=== PATIENT | male | born 1950 | race Caucasian/White ===

== ENCOUNTER → 2023-07-26 | Outpatient (CLI) | payer MEDICARE | END | disposition home or self-care (01) | LOC: RESCLI 12:56 | PROVIDERS: ATTEND Family Medicine | DX: I10 Essential (primary) hypertension (principal); E78.5 Hyperlipidemia, unspecified; I48.91 Unspecified atrial fibrillation; Z85.828 Personal history of other malignant neoplasm of skin; Z98.890 Other specified postprocedural states; Z79.01 Long term (current) use of anticoagulants; Z88.8 Allergy status to other drugs, medicaments and biological substances; Z79.899 Other long term (current) drug therapy ==

== ENCOUNTER → 2023-09-13 | Outpatient (CLI) | payer MEDICARE ==
[~2023-09-13] MED LIST: AMLODIPINE-BEN1 EAC2 PO; COREG25 MG PO; FLECAINIDE ACE100 M1 PO; LASIX20 MG PO; LIPITOR40 MG PO; XARELTO20 M1 PO
== END | disposition home or self-care (01) ==
LOC: CARD 00:25
PROVIDERS: ATTEND Internal Medicine Cardiovascular Disease
DX: I48.91 Unspecified atrial fibrillation (principal); I10 Essential (primary) hypertension; R94.31 Abnormal electrocardiogram [ECG] [EKG]

== ENCOUNTER → 2024-07-19 | Outpatient (CLI) | payer MEDICARE | END | disposition home or self-care (01) | LOC: RESCLI 02:36 | PROVIDERS: ATTEND Student in an Organized Health Care Education/Training Program | DX: I10 Essential (primary) hypertension (principal); E78.5 Hyperlipidemia, unspecified; I48.91 Unspecified atrial fibrillation; Z85.828 Personal history of other malignant neoplasm of skin; Z98.890 Other specified postprocedural states; Z82.3 Family history of stroke; Z79.899 Other long term (current) drug therapy; Z88.8 Allergy status to other drugs, medicaments and biological substances ==

== ENCOUNTER 2024-09-05 17:18 | Emergency (ER) | payer MEDICARE ==
[~2024-09-05] VITALS: Ht 185.4 cm; Wt 113.4 kg
[2024-09-05] MEDS ORDERED: SILVER NITRATE APPLICATOR 1 EACH APP T ONE (17:55)
[2024-09-05] MEDS ORDERED: Gelatin Sponge 1 EACH SPON T ONE (18:00)
[2024-09-05] MEDS ORDERED: LIDOCAINE HCL/EPINEPHRINE 50 ML VIAL SC ONE (18:05)
[2024-09-05] MEDS ORDERED: TRANEXAMIC ACID 1,000 MG/10 ML VIAL T SCH (18:15)
== END 2024-09-05 18:24 | disposition home or self-care (01) ==
LOC: ED 17:18
DX: L76.22 Postprocedural hemorrhage of skin and subcutaneous tissue following other procedure (principal); I10 Essential (primary) hypertension; I48.91 Unspecified atrial fibrillation; E78.00 Pure hypercholesterolemia, unspecified; Y83.8 Other surgical procedures as the cause of abnormal reaction of the patient, or of later complication, without mention of misadventure at the time of the procedure; Y92.009 Unspecified place in unspecified non-institutional (private) residence as the place of occurrence of the external cause